=== PATIENT | female | born 1980 | race Caucasian/White ===

== ENCOUNTER 2025-07-09 10:37 | Emergency (ER) | payer OTHER ==
[~2025-07-09] VITALS: Ht 165.1 cm; Wt 53.5 kg
[2025-07-09 10:46] VITALS: TEMP 98.2
[2025-07-09] MEDS ORDERED: LIDOCAINE 1% INJ 50 ML MDV IJ ONE (11:50)
[2025-07-09] MEDS ORDERED: CLIN300C12 PO (14:21)
[2025-07-09] MEDS ORDERED: IBUP-1955 PO (14:22)
[2025-07-09 14:29] VITALS: BP 122/78; O2SAT 98
== END 2025-07-09 14:30 | disposition home or self-care (01) ==
LOC: ER 10:46
DX: L02.11 Cutaneous abscess of neck (principal)
CPT/HCPCS: 99284; 10060; J3490; A6403; A6407